=== PATIENT | male | born 1965 | race Native Hawaiian/Other Pacific Islander ===

== ENCOUNTER 2016-06-12 17:57 | Emergency (ER) | payer OTHER ==
[~2016-06-12] VITALS: Ht 177.8 cm; Wt 71.7 kg
[2016-06-12 19:03] LABS: PLATELET COUNT 311 K/uL (142-355)
== END 2016-06-12 19:26 | disposition home or self-care (01) ==
LOC: ED 17:57
DX: D64.89 Other specified anemias (principal); K74.69 Other cirrhosis of liver
CPT/HCPCS: 36415; 85007; 85027; 99282